=== PATIENT | female | born 1985 | race Two or more races ===

== ENCOUNTER 2018-05-28 15:21 | Emergency (ER) | payer SELFPAY ==
[~2018-05-28] VITALS: Ht 167.6 cm; Wt 72.6 kg
[2018-05-28 18:30] VITALS: BP 120/61
== END 2018-05-28 18:33 | disposition home or self-care (01) ==
LOC: EDBD 15:21 → EDUNIT# 15:21 → ER 15:24
DX: S16.1XXA Strain of muscle, fascia and tendon at neck level, initial encounter (principal); S50.12XA Contusion of left forearm, initial encounter; S80.01XA Contusion of right knee, initial encounter; S09.90XA Unspecified injury of head, initial encounter; V43.52XA Car driver injured in collision with other type car in traffic accident, initial encounter; Y93.89 Activity, other specified; Y99.8 Other external cause status; Y92.89 Other specified places as the place of occurrence of the external cause
CPT/HCPCS: 70450; 72125; 73090; 73130; 73560

== ENCOUNTER 2019-03-27 01:13 | Emergency (ER) | payer BC ==
[~2019-03-27] VITALS: Ht 170.2 cm; Wt 61.2 kg
[2019-03-27 04:39] VITALS: BP 112/73
== END 2019-03-27 06:30 | disposition home or self-care (01) ==
LOC: ER 01:18
DX: S83.91XA Sprain of unspecified site of right knee, initial encounter (principal); S40.811A Abrasion of right upper arm, initial encounter; Y08.89XA Assault by other specified means, initial encounter; Y93.89 Activity, other specified; Y99.8 Other external cause status; Y92.89 Other specified places as the place of occurrence of the external cause
CPT/HCPCS: 73562; 73700

== ENCOUNTER 2024-07-04 17:26 | Emergency (ER) | payer BC, OTHER ==
[~2024-07-04] VITALS: Ht 170.2 cm; Wt 61.3 kg
[2024-07-04 17:26] VITALS: BP 100/84; PULSE 84; RESP 16; O2SAT 98
--- NOTE | 2024-07-04 18:56 | DVH ---
EXAM: CT HEAD WITHOUT CONTRAST HISTORY: HEAD INJURY, LOC COMPARISON: None TECHNIQUE: Axial images were obtained and reformatted in coronal and sagittal planes. All CT scans at this medical facility are performed using dose modulation techniques as appropriate t o a performed exam including the following: Automated exposure control was utilized; adjustment of th e MA and/or KV according to patient size; and use of iterative reconstruction technique. CT Dose: CTDI volume is 48.96 mGy. Dose-length product is 785.12 mGy*cm FINDINGS: Supratentorial Region: No evidence for large acute territorial ischemia. No intracranial hemorrhage is noted. Posterior Fossa: No acute abnormality. Brainstem: Unremarkable. Sellar/Suprasellar Region: Unremarkable. Ventricles, Cisterns, Sulci: Age-appropriate. Orbits: Unremarkable. Paranasal Sinuses: Unremarkable. Mastoid Air Cells: Unremarkable. Vasculature: Unremarkable. Bones/Soft Tissues: No acute abnormality. Other: None. IMPRESSION: 1. No acute intracranial process.
[2024-07-04] MEDS ORDERED: IBUP-1454 PO (19:29)
[2024-07-04] MEDS ORDERED: CYCL-837 PO (19:29)
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
[2024-07-04] MEDS: KETOROLAC TROMETH 30 MG/ML 1ML VIAL IM ONE (19:30)
== END 2024-07-04 21:14 | disposition home or self-care (01) ==
LOC: ER 17:26 → EDBD 17:26 → ER 21:14
DX: S06.891A Other specified intracranial injury with loss of consciousness of 30 minutes or less, initial encounter (principal); F07.81 Postconcussional syndrome; W51.XXXA Accidental striking against or bumped into by another person, initial encounter; Y93.89 Activity, other specified; Y92.89 Other specified places as the place of occurrence of the external cause; Y99.8 Other external cause status
CPT/HCPCS: 70450; 96372; 99285; J1885